=== PATIENT | female | born 1995 | race Two or more races ===

== ENCOUNTER 2023-01-07 11:33 | Emergency (ER) | payer MEDICAID ==
[~2023-01-07] VITALS: Ht 167.6 cm; Wt 82.0 kg
[2023-01-07 11:35] VITALS: TEMP 97.7
[2023-01-07] MEDS ORDERED: ETON68IM4 SD (11:44)
[2023-01-07 11:47] LABS: COVID AG,FIA SOURCE NASAL SWAB
[2023-01-07] MEDS ORDERED: ACETAMINOPHEN 500 MG TABLET PO ONE (12:00)
[2023-01-07] MEDS ORDERED: KETOROLAC TROMETHAMINE 30 MG/ML VIAL IM ONE (12:00)
[2023-01-07] MEDS ORDERED: LIDOCAINE 5% TRANSDERMAL PATCH TD ONE (12:00)
[2023-01-07 12:10] LABS: SARS-COV2 (COVID) ANTIGEN,FIA Negative (Negative)
[2023-01-07 12:13] LABS: INFLUENZA TYPE A NEGATIVE FOR TYPE A (NEGATIVE); INFLUENZA TYPE B NEGATIVE FOR TYPE B (NEGATIVE)
[2023-01-07] MEDS ORDERED: ACET-3385 PO (12:41)
[2023-01-07] MEDS ORDERED: IBUP-1492 PO (12:41)
[2023-01-07 12:58] VITALS: BP 114/71; PULSE 84; RESP 16
[2023-01-08] MEDS ORDERED: ACET-3385 PO (12:10)
[2023-01-08] MEDS ORDERED: IBUP-1492 PO (12:10)
== END 2023-01-07 13:22 | disposition home or self-care (01) ==
LOC: EMS 11:35
DX: S29.012A Strain of muscle and tendon of back wall of thorax, initial encounter (principal); R05.9 Cough, unspecified; Z90.49 Acquired absence of other specified parts of digestive tract; X58.XXXA Exposure to other specified factors, initial encounter; Y93.89 Activity, other specified; Y92.89 Other specified places as the place of occurrence of the external cause; Y99.8 Other external cause status
CPT/HCPCS: 99284; 71046; 87426; 87804; 96372; J1885